=== PATIENT | female | born 1950 | race Caucasian/White ===

== ENCOUNTER 2023-12-30 09:57 | Inpatient (IN) | payer OTHER ==
[2023-12-30 11:31] LABS: HEMATOCRIT 37.7 % (32.4-45.2); HEMOGLOBIN 11.7 GM/dL (10.7-15.3); MCHC 31.1 g/dl (32.0-36.0); MEAN CELL VOLUME 96.4 fl (80-96); MEAN PLT VOLUME 9.7 fl (7.5-11.1); PLATELET COUNT 342 10^3/uL (134-434); RBC 3.91 M/mm3 (3.60-5.2); RDW 13.9 % (11.6-15.6); VENOUS BASE EXCESS -10.4 mmol/L (-2-2); VENOUS O2 SATURATION 72.7 % (70-80); VENOUS PCO2 36.7 mmHg (38-52); VENOUS PH 7.254 (7.310-7.410); WHITE BLOOD COUNT 20.9 K/mm3 (4.0-10.0)
[2023-12-30 11:39] LABS: PH,URINE 6.5 (5.0-8.0); URINE APPEARANCE CLEAR; URINE BILIRUBIN NEGATIVE (NEGATIVE); URINE COLOR YELLOW; URINE GLUCOSE (UA) 3+ (NEGATIVE); URINE KETONE 1+ (NEGATIVE); URINE LEUK ESTERASE NEGATIVE (NEGATIVE); URINE NITRITE NEGATIVE (NEGATIVE); URINE PROTEIN 2+ (NEGATIVE); URINE UROBILINOGEN 0.2 mg/dL (0.2-1.0)
[2023-12-30 11:42] LABS: METHADONE, UR NEGATIVE (NEGATIVE); PHENCYCLIDINE,URINE NEGATIVE (NEGATIVE); URINE BENZODIAZEPINES NEGATIVE (NEGATIVE)
[2023-12-30 11:43] LABS: COCAINE, UR NEGATIVE (NEGATIVE); OPIATES, URI NEGATIVE (NEGATIVE); URINE AMPHETAMINES NEGATIVE (NEGATIVE); URINE BARBITURATES NEGATIVE (NEGATIVE)
[2023-12-30 11:47] LABS: INR 1.05 (0.83-1.09); PROTHROMBIN TIME (PATIENT) 11.9 SEC (9.7-13.0)
[2023-12-30 11:49] LABS: ACTIVATED PTT 33.4 SECONDS (25.2-36.5)
[2023-12-30 11:50] LABS: CHLORIDE 87 mmol/L (98-107); POTASSIUM 3.4 mmol/L (3.5-5.1); SODIUM 128 mmol/L (136-145)
[2023-12-30 11:52] LABS: ANION GAP 24 mmol/L (4-13); CALCIUM 9.5 mg/dL (8.5-10.1); CO2 17 mmol/L (21-32)
[2023-12-30 11:54] LABS: BLOOD UREA NITROGEN 43.1 mg/dL (7-18)
[2023-12-30 11:56] LABS: CREATININE 2.1 mg/dL (0.55-1.3); SGOT/AST 195 U/L (15-37); SGPT/ALT 88 U/L (13-61)
[2023-12-30 11:57] LABS: CHOLESTEROL 100 mg/dL (50-200)
[2023-12-30 11:58] LABS: LDL CHOLESTEROL (ONLY SJRH) 17 mg/dL (5-100)
[2023-12-30 11:59] LABS: BILIRUBIN,TOTAL 0.8 mg/dL (0.2-1)
[2023-12-30 12:00] LABS: ALK PHOS 178 U/L (45-117); HDL CHOLESTEROL 75 mg/dL (40-60)
[2023-12-30 12:13] LABS: GLUCOSE,RANDOM 1000 mg/dL (74-106); PLATELET ESTIMATE ADEQUATE
[2023-12-30] MEDS ORDERED: KCL 10 MEQ IVPB 10 MEQ/100 ML INFUS.BAG IVPB ONE ×2 (12:20→13:43)
[2023-12-30] MEDS ORDERED: INSULIN REGULAR HUMAN 100 UNITS/ML *VIAL ONE (12:22)
[2023-12-30] MEDS: SODIUM CHLORIDE 2,000 ML IV STA (12:29)
[2023-12-30] MEDS: KCL 10 MEQ IVPB 10 MEQ/100 ML INFUS.BAG IVPB SCH ×2 (12:29→21:01)
[2023-12-30] MEDS: INSULIN REGULAR HUMAN 100 UNITS/ML *VIAL* (FOR IVP) IVPUSH ONE (13:24)
[2023-12-30] MEDS: INSULIN REGULAR 100 UNITS in SODIUM CHLORIDE 99 ML IVPB SCH ×2 (13:24→15:35)
[2023-12-30 13:31] LABS: LACTIC ACID 2.1 mmol/L (0.4-2.0)
[2023-12-30] MEDS ORDERED: PIPERACILLIN/TAZOB 3.375 GM 3.375 GM/50 ML BAG IVPB ONE (13:43)
[2023-12-30] MEDS: PIPERACILLIN/TAZOB 3.375 GM 3.375 GM in DEXTROSE 5%-WATER - 50 ML IVPB ONE (13:54)
[2023-12-30] MEDS: SODIUM CHLORIDE 1,000 ML IV STA (13:54)
[2023-12-30] MEDS ORDERED: SODIUM CHLORIDE 0.9%/KCL 20 MEQ/1,000 ML INFUS.BAG IV SCH (14:00)
[2023-12-30 14:21] LABS: CHLORIDE 96 mmol/L (98-107); POTASSIUM 3.8 mmol/L (3.5-5.1); SODIUM 132 mmol/L (136-145)
[2023-12-30 14:23] LABS: CALCIUM 9.2 mg/dL (8.5-10.1)
[2023-12-30 14:24] LABS: ALBUMIN 2.7 g/dl (3.4-5.0); ANION GAP 18 mmol/L (4-13); BLOOD UREA NITROGEN 40.4 mg/dL (7-18); CO2 18 mmol/L (21-32)
[2023-12-30 14:25] LABS: EPI CELLS 11.3 /uL (0-25.1); HYALINE CASTS 0 /uL (0-3.1); URINE BACTERIA 17 /uL (0-1359); URINE RBC 411.5 /uL (0-23.9); URINE WBC 48 /uL (0-25.8); YEAST POSITIVE (NEGATIVE)
[2023-12-30 14:27] LABS: CREATININE 1.6 mg/dL (0.55-1.3); SGOT/AST 201 U/L (15-37); SGPT/ALT 89 U/L (13-61)
[2023-12-30 14:29] LABS: BILIRUBIN,TOTAL 0.6 mg/dL (0.2-1); TOT PROT 6.2 g/dl (6.4-8.2)
[2023-12-30 14:30] LABS: ALK PHOS 155 U/L (45-117)
[2023-12-30 14:31] LABS: GLUCOSE,RANDOM 823 mg/dL (74-106)
[2023-12-30] MEDS: SODIUM CHLORIDE 1,000 ML IV SCH (15:34)
[2023-12-30 15:59] LABS: CHLORIDE 106 mmol/L (98-107); POTASSIUM 3.3 mmol/L (3.5-5.1); SODIUM 138 mmol/L (136-145)
[2023-12-30 16:01] LABS: CALCIUM 8.7 mg/dL (8.5-10.1)
[2023-12-30 16:02] LABS: ANION GAP 12 mmol/L (4-13); BLOOD UREA NITROGEN 36.4 mg/dL (7-18); CO2 20 mmol/L (21-32)
[2023-12-30 16:05] LABS: CREATININE 1.4 mg/dL (0.55-1.3)
[2023-12-30 16:07] LABS: LACTIC ACID 2.2 mmol/L (0.4-2.0)
[2023-12-30 16:11] LABS: GLUCOSE,RANDOM 565 mg/dL (74-106)
[2023-12-30] MEDS: LACTATED RINGERS SOLUTION 1,000 ML with POTASSIUM CHLORIDE 20 MEQ IV ONE (17:48)
[2023-12-30] MEDS: MAGNESIUM SULFATE IN WATER 2 GM/50 ML IVPB IVPB ONE (17:50)
[2023-12-30 18:36] LABS: CHLORIDE 108 mmol/L (98-107); POTASSIUM 3.4 mmol/L (3.5-5.1); SODIUM 139 mmol/L (136-145)
[2023-12-30 18:38] LABS: CALCIUM 8.7 mg/dL (8.5-10.1)
[2023-12-30 18:39] LABS: ANION GAP 8 mmol/L (4-13); BLOOD UREA NITROGEN 34.5 mg/dL (7-18); CO2 23 mmol/L (21-32)
[2023-12-30 18:42] LABS: CREATININE 1.2 mg/dL (0.55-1.3)
[2023-12-30 18:46] LABS: GLUCOSE,RANDOM 408 mg/dL (74-106)
[2023-12-30 20:43] LABS: POTASSIUM 3.2 mmol/L (3.5-5.1)
[2023-12-30 20:45] LABS: BLOOD UREA NITROGEN 32.4 mg/dL (7-18); CALCIUM 8.7 mg/dL (8.5-10.1)
[2023-12-30] MEDS: MUPIROCIN 2% TOPICAL OINTMENT FOR DECOLONIZATION NS SCH (21:05)
[2023-12-30] MEDS: CHLORHEXIDINE GLUCONATE 4% CLEANSER FOR DECOLONIZATION TP SCH (21:05)
[2023-12-30 21:15] LABS: MAGNESIUM 2.6 mg/dL (1.8-2.4)
[2023-12-30] MEDS ORDERED: HEPARIN NA (PORCINE) 5,000 UNITS/ML 1ML VIAL SQ SCH (22:00)
[2023-12-31 01:02] LABS: CALCIUM 8.9 mg/dL (8.5-10.1)
[2023-12-31 01:03] LABS: BLOOD UREA NITROGEN 30.7 mg/dL (7-18)
[2023-12-31 01:06] LABS: CREATININE 0.9 mg/dL (0.55-1.3)
[2023-12-31] MEDS: INSULIN (LEVEMIR) 100 UNITS/ML UNITS SQ ONE (01:17)
[2023-12-31] MEDS: INSULIN ASPART SLIDING SCALE (NOVOLOG) 1 VIAL SQ SCH ×2 (06:02→21:23)
[2023-12-31] MEDS ORDERED: INSULIN (NOVOLOG) ASPART 100 UNITS/ML 10ML VIAL ONE (06:05)
[2023-12-31 07:03] LABS: HEMATOCRIT 31.3 % (32.4-45.2); HEMOGLOBIN 10.6 GM/dL (10.7-15.3); MCH 30.5 pg (25.7-33.7); MCHC 33.9 g/dl (32.0-36.0); MEAN PLT VOLUME 8.1 fl (7.5-11.1); PLATELET COUNT 277 10^3/uL (134-434); RBC 3.48 M/mm3 (3.60-5.2); RDW 13.3 % (11.6-15.6); WHITE BLOOD COUNT 18.8 K/mm3 (4.0-10.0)
[2023-12-31 07:18] LABS: POTASSIUM 3.9 mmol/L (3.5-5.1)
[2023-12-31 07:20] LABS: CALCIUM 8.5 mg/dL (8.5-10.1); INR 1.09 (0.83-1.09); PROTHROMBIN TIME (PATIENT) 12.3 SEC (9.7-13.0)
[2023-12-31 07:21] LABS: ACTIVATED PTT 29.6 SECONDS (25.2-36.5); BLOOD UREA NITROGEN 32.2 mg/dL (7-18); MAGNESIUM 2.1 mg/dL (1.8-2.4)
[2023-12-31 07:24] LABS: CREATININE 0.6 mg/dL (0.55-1.3); PHOSPHOROUS 2.3 mg/dL (2.5-4.9)
[2023-12-31 07:25] LABS: BILIRUBIN,TOTAL 0.4 mg/dL (0.2-1); TOT PROT 5.1 g/dl (6.4-8.2)
[2023-12-31 07:46] LABS: ALBUMIN 2.1 g/dl (3.4-5.0)
[2023-12-31] MEDS: INSULIN (LEVEMIR) 100 UNITS/ML UNITS SQ SCH ×2 (08:40→21:22)
[2023-12-31 08:46] LABS: ANISOCYTOSIS 0; MACROCYTOSIS 0
[2023-12-31] MEDS: ENOXAPARIN NA (PORCINE) 40 MG/0.4 ML DISP.SYRIN SQ SCH (13:27)
[2023-12-31] MEDS: SODIUM CHLORIDE 1,000 ML IV SCH (13:31)
[2023-12-31] MEDS: PIPERACILLIN/TAZOB 3.375 GM 3.375 GM in DEXTROSE 5%-WATER - 50 ML IVPB SCH (16:22)
[2023-12-31] MEDS ORDERED: MUPIROCIN 2% TOPICAL OINTMENT FOR DECOLONIZATION NS SCH (22:00)
[2023-12-31] MEDS ORDERED: CHLORHEXIDINE GLUCONATE 4% CLEANSER FOR DECOLONIZATION TP SCH (22:00)
[2024-01-01 09:48] LABS: HEMATOCRIT 28.3 % (32.4-45.2); HEMOGLOBIN 9.6 GM/dL (10.7-15.3); MCH 30.5 pg (25.7-33.7); MEAN CELL VOLUME 89.9 fl (80-96); MEAN PLT VOLUME 8.2 fl (7.5-11.1); PLATELET COUNT 233 10^3/uL (134-434); RBC 3.14 M/mm3 (3.60-5.2); RDW 13.6 % (11.6-15.6); WHITE BLOOD COUNT 14.2 K/mm3 (4.0-10.0)
[2024-01-01] MEDS ORDERED: INSULIN (LEVEMIR) 100 UNITS/ML UNITS SQ SCH ×3 (10:00→17:43)
[2024-01-01 10:09] LABS: POTASSIUM 4.1 mmol/L (3.5-5.1)
[2024-01-01 10:14] LABS: BLOOD UREA NITROGEN 32.8 mg/dL (7-18)
[2024-01-01 10:15] LABS: CALCIUM 8.6 mg/dL (8.5-10.1); MAGNESIUM 1.7 mg/dL (1.8-2.4)
[2024-01-01 10:19] LABS: CREATININE 0.4 mg/dL (0.55-1.3); PHOSPHOROUS 2.3 mg/dL (2.5-4.9)
[2024-01-01 10:20] LABS: BILIRUBIN,TOTAL 0.4 mg/dL (0.2-1); TOT PROT 4.8 g/dl (6.4-8.2)
[2024-01-01 12:24] LABS: POTASSIUM 4.1 mmol/L (3.5-5.1)
[2024-01-01 12:28] LABS: BLOOD UREA NITROGEN 31.1 mg/dL (7-18); CALCIUM 8.8 mg/dL (8.5-10.1)
[2024-01-01 12:31] LABS: BILIRUBIN,DIRECT 0.2 mg/dL (0.0-0.2)
[2024-01-01 12:32] LABS: CREATININE 0.4 mg/dL (0.55-1.3)
[2024-01-01 12:33] LABS: BILIRUBIN,TOTAL 0.5 mg/dL (0.2-1)
[2024-01-01] MEDS ORDERED: CEFTRIAXONE 1 GM in DEXTROSE 5%-WATER - 50 ML IVPB SCH (14:00)
[2024-01-01] MEDS ORDERED: diphenhydrAMINE HCL 50 MG CAPSULE PO PRN (17:21)
[2024-01-01] MEDS: SODIUM CHLORIDE 1,000 ML IV SCH (17:52)
[2024-01-01] MEDS: CEFTRIAXONE 1 GM in DEXTROSE 5%-WATER - 50 ML IVPB SCH (18:08)
[2024-01-01] MEDS: diphenhydrAMINE HCL 25 MG CAPSULE (FP) PO PRN (21:13)
[2024-01-01] MEDS: INSULIN ASPART SLIDING SCALE (NOVOLOG) 1 VIAL SQ SCH (21:15)
[2024-01-02] MEDS: INSULIN (LEVEMIR) 100 UNITS/ML UNITS SQ SCH (06:00)
[2024-01-02 08:46] LABS: INR 1.16 (0.83-1.09); PROTHROMBIN TIME (PATIENT) 13.1 SEC (9.7-13.0)
[2024-01-02 08:47] LABS: BASO % 0.2 % (0-2.0); EOS % 0.3 % (0-4.5); HEMATOCRIT 26.8 % (32.4-45.2); HEMOGLOBIN 9.2 GM/dL (10.7-15.3); LYMPH % 6.5 % (8-40); MCHC 34.3 g/dl (32.0-36.0); MEAN CELL VOLUME 90.4 fl (80-96); MEAN PLT VOLUME 9.1 fl (7.5-11.1); MONO % 3.4 % (3.8-10.2); NEUT % 89.6 % (42.8-82.8); PLATELET COUNT 207 10^3/uL (134-434); RBC 2.96 M/mm3 (3.60-5.2); RDW 13.4 % (11.6-15.6); WHITE BLOOD COUNT 11.1 K/mm3 (4.0-10.0)
[2024-01-02 08:56] LABS: POTASSIUM 4.1 mmol/L (3.5-5.1)
[2024-01-02 09:08] LABS: BLOOD UREA NITROGEN 25.6 mg/dL (7-18)
[2024-01-02 09:10] LABS: BILIRUBIN,DIRECT 0.1 mg/dL (0.0-0.2); CALCIUM 8.1 mg/dL (8.5-10.1)
[2024-01-02 09:11] LABS: ALBUMIN 1.9 g/dl (3.4-5.0); CREATININE 0.4 mg/dL (0.55-1.3)
[2024-01-02 09:12] LABS: TOT PROT 4.7 g/dl (6.4-8.2)
[2024-01-02 09:13] LABS: BILIRUBIN,TOTAL 0.4 mg/dL (0.2-1)
[2024-01-02 16:08] VITALS: BMI 18.3
[2024-01-03 09:06] LABS: HEMATOCRIT 29.1 % (32.4-45.2); HEMOGLOBIN 9.7 GM/dL (10.7-15.3); RBC 3.19 M/mm3 (3.60-5.2); WHITE BLOOD COUNT 13.4 K/mm3 (4.0-10.0)
[2024-01-03 09:07] LABS: MCH 30.2 pg (25.7-33.7); MCHC 33.2 g/dl (32.0-36.0); MEAN CELL VOLUME 91.2 fl (80-96); MEAN PLT VOLUME 8.7 fl (7.5-11.1); PLATELET COUNT 195 10^3/uL (134-434); RDW 13.5 % (11.6-15.6)
[2024-01-03 09:09] LABS: INR 1.07 (0.83-1.09); PROTHROMBIN TIME (PATIENT) 12.3 SEC (9.7-13.0)
[2024-01-03 09:16] LABS: POTASSIUM 4.1 mmol/L (3.5-5.1)
[2024-01-03 09:20] LABS: CALCIUM 8.1 mg/dL (8.5-10.1)
[2024-01-03 09:21] LABS: ALBUMIN 1.9 g/dl (3.4-5.0); BLOOD UREA NITROGEN 15.4 mg/dL (7-18); MAGNESIUM 1.7 mg/dL (1.8-2.4)
[2024-01-03 09:24] LABS: CREATININE 0.3 mg/dL (0.55-1.3)
[2024-01-03 09:25] LABS: PHOSPHOROUS 2.8 mg/dL (2.5-4.9)
[2024-01-03 09:26] LABS: BILIRUBIN,TOTAL 0.4 mg/dL (0.2-1); TOT PROT 4.8 g/dl (6.4-8.2)
[2024-01-03 11:33] LABS: ANISOCYTOSIS 0; HELMET CELLS 0; HOWELL-JOLLY BODIES 0; MACROCYTOSIS 0; OVALOCYTE 0; ROULEAU 0; SICKELED CELLS 0; TARGET CELLS 0; TEAR DROP CELLS 0; TOXIC GRANULATION 0
[2024-01-03] MEDS: INSULIN (LEVEMIR) 100 UNITS/ML UNITS SQ SCH (12:18)
[2024-01-03] MEDS: ACETAMINOPHEN 325 MG TABLET (FP) PO PRN (14:31)
[2024-01-04] MEDS: INSULIN ASPART SLIDING SCALE (NOVOLOG) 1 VIAL SQ SCH (16:56)
[2024-01-05] MEDS: INSULIN (LEVEMIR) 100 UNITS/ML UNITS SQ SCH (06:08)
[2024-01-05 09:45] LABS: BASO % 0.3 % (0-2.0); EOS % 0.7 % (0-4.5); HEMOGLOBIN 11.3 GM/dL (10.7-15.3); MCH 31.3 pg (25.7-33.7); MCHC 34.3 g/dl (32.0-36.0); MEAN CELL VOLUME 91.1 fl (80-96); MEAN PLT VOLUME 8.7 fl (7.5-11.1); PLATELET COUNT 295 10^3/uL (134-434); RBC 3.62 M/mm3 (3.60-5.2); RDW 13.8 % (11.6-15.6); WHITE BLOOD COUNT 10.3 K/mm3 (4.0-10.0)
[2024-01-05 10:35] LABS: ALBUMIN 1.9 g/dl (3.4-5.0); BILIRUBIN,TOTAL 0.4 mg/dL (0.2-1); BLOOD UREA NITROGEN 12.7 mg/dL (7-18); CALCIUM 8.4 mg/dL (8.5-10.1); CREATININE 0.4 mg/dL (0.55-1.3); POTASSIUM 4.1 mmol/L (3.5-5.1); TOT PROT 5.1 g/dl (6.4-8.2)
[2024-01-06] MEDS: INSULIN (LEVEMIR) 100 UNITS/ML UNITS SQ SCH ×2 (06:07→21:27)
[2024-01-06 16:07] LABS: BASO % 0.4 % (0-2.0); HEMATOCRIT 29.3 % (32.4-45.2); HEMOGLOBIN 9.6 GM/dL (10.7-15.3); LYMPH % 6.9 % (8-40); MCH 30.4 pg (25.7-33.7); MCHC 32.6 g/dl (32.0-36.0); MEAN CELL VOLUME 93.2 fl (80-96); MEAN PLT VOLUME 8.8 fl (7.5-11.1); MONO % 6.5 % (3.8-10.2); NEUT % 85.2 % (42.8-82.8); PLATELET COUNT 306 10^3/uL (134-434); RBC 3.15 M/mm3 (3.60-5.2); RDW 14.2 % (11.6-15.6); WHITE BLOOD COUNT 13.4 K/mm3 (4.0-10.0)
[2024-01-06 16:56] LABS: ALBUMIN 1.7 g/dl (3.4-5.0); BILIRUBIN,TOTAL 0.2 mg/dL (0.2-1); BLOOD UREA NITROGEN 16.2 mg/dL (7-18); CALCIUM 7.7 mg/dL (8.5-10.1); CREATININE 0.4 mg/dL (0.55-1.3); MAGNESIUM 1.8 mg/dL (1.8-2.4); PHOSPHOROUS 2.8 mg/dL (2.5-4.9); POTASSIUM 4.5 mmol/L (3.5-5.1); TOT PROT 4.5 g/dl (6.4-8.2)
[2024-01-07] MEDS ORDERED: INSULIN (LEVEMIR) 100 UNITS/ML UNITS SQ SCH (08:20)
[2024-01-07] MEDS: TAMSULOSIN HCL 0.4 MG CAP PO SCH (12:00)
[2024-01-07] MEDS: ZINC OXIDE 20% TOPICAL OINTMENT 30 GM TUBE TP SCH (15:17)
[2024-01-07] MEDS: MELATONIN 5 MG TABLETS PO PRN (22:03)
[2024-01-07] MEDS: INSULIN (LEVEMIR) 100 UNITS/ML UNITS SQ SCH (22:09)
[2024-01-08] MEDS: INSULIN (LEVEMIR) 100 UNITS/ML UNITS SQ SCH (06:27)
[2024-01-08 10:05] LABS: HEMATOCRIT 30.7 % (32.4-45.2); MCH 30.4 pg (25.7-33.7); MCHC 32.7 g/dl (32.0-36.0); MEAN PLT VOLUME 8.2 fl (7.5-11.1); PLATELET COUNT 362 10^3/uL (134-434); RDW 14.2 % (11.6-15.6); WHITE BLOOD COUNT 10.8 K/mm3 (4.0-10.0)
[2024-01-08 10:29] LABS: POTASSIUM 4.2 mmol/L (3.5-5.1)
[2024-01-08 10:33] LABS: CALCIUM 8.6 mg/dL (8.5-10.1)
[2024-01-08 10:35] LABS: ALBUMIN 1.9 g/dl (3.4-5.0); BLOOD UREA NITROGEN 19.2 mg/dL (7-18)
[2024-01-08 10:38] LABS: CREATININE 0.3 mg/dL (0.55-1.3)
[2024-01-08 10:39] LABS: BILIRUBIN,TOTAL 0.4 mg/dL (0.2-1); TOT PROT 5.2 g/dl (6.4-8.2)
[2024-01-08] MEDS ORDERED: ATORVASTATIN CA 20 MG TABLET (FP) PO SCH (22:00)
[2024-01-09 09:18] VITALS: BP 131/65; PULSE 79; RESP 20; TEMP 98.3
== END 2024-01-09 11:43 | DRG 637 ==
LOC: JER 09:57 → JERBED 12:18 → JICU 15:07 → J5S 12-31 19:24
PROVIDERS: ADMIT Internal Medicine; ATTEND Internal Medicine
DX: E10.10 Type 1 diabetes mellitus with ketoacidosis without coma (principal); I21.4 Non-ST elevation (NSTEMI) myocardial infarction; E87.1 Hypo-osmolality and hyponatremia; N17.9 Acute kidney failure, unspecified; E87.20 Acidosis, unspecified; M62.82 Rhabdomyolysis; R64 Cachexia; E44.0 Moderate protein-calorie malnutrition; R41.82 Altered mental status, unspecified; E87.6 Hypokalemia; D72.829 Elevated white blood cell count, unspecified; Z68.21 Body mass index [BMI] 21.0-21.9, adult
CPT/HCPCS: 36415; 70450-TC; 71045-TC-FY; 72170-TC-FY; 76700-TC; 78226-TC; 80048; 80053; 80061; 80307; 81003; 82010; 82248; 82550; 82553; 82803; 82962; 83036; 83605; 83735; 83930; 84100; 84484; 85025; 85027; 85610; 85730; 86704; 86708; 86709; 86803; 87040; 87086; 87340; 87517; 87635; 93005; 93010; 93306-TC; 97116-GP; 97161-GP; 99291; A9537